=== PATIENT | female | born 1990 ===

== ENCOUNTER → 2022-12-09 14:35 | Outpatient (CLI) | payer SELFPAY ==
--- NOTE | ~2022-12-09 | MR_ITS ---
EXAMINATION: MR foot LT wo con DATE: 12/09/2022 15:23 INDICATION: Crush injury of left foot. Left great toe numbness and tingling. TECHNIQUE: Magnetic resonance imaging (MRI) of the left foot was performed without intravenous contra st. COMPARISON: None FINDINGS: There is mild hallux valgus. There is a nondisplaced trabecular fracture of neck of first p roximal phalanx with low signal fracture line and edema-like marrow signal intensity. There is mild o steoarthritis of first metatarsophalangeal joint and some of the interphalangeal joints. Lisfranc lig ament is normal. The flexor and extensor tendons are normal. IMPRESSION: 1. Nondisplaced trabecular fracture of neck of first proximal phalanx. 2. Mild hallux valgus. 3. Mild polyarticular osteoarthritis. Reviewed, dictated and finalized at location A.
== END ==
PROVIDERS: PCP Nurse Practitioner Family; Visit Provider Nurse Practitioner Family
DX: R20.0 Anesthesia of skin (principal); M20.12 Hallux valgus (acquired), left foot; M19.072 Primary osteoarthritis, left ankle and foot; S92.415A Nondisplaced fracture of proximal phalanx of left great toe, initial encounter for closed fracture; X58.XXXA Exposure to other specified factors, initial encounter
CPT/HCPCS: 73718